=== PATIENT | female | born 1955 | race Caucasian/White ===

== ENCOUNTER 2025-01-20 09:27 | Outpatient (OUT) | payer MEDICARE, SELFPAY ==
--- OUTSIDE RECORDS SUMMARY | 2024-08-24 04:45 | XMS_ITS ---
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 Name Role Phone Estefani Cohn Primary Care Provider REASON FOR VISIT 6 month HTN, GERD Social History Sex Assigned At : Social History Observation Description Sex Assigned At Female Encounters Encounter Location Date Provider Diagnosis Main [address] [facility], [place] [id number] 08/24/2024 Estefani Cohn Plan Of Treatment Next Appt Details Provider Name:Estefani jean baptiste, 03/04/2025 09:45:00 AM, [address] [place], [id number], Progress Notes * Leta BRANCH LDOB:[birth year] (69 yo F)Acc No.[id number]:08/24/2024 Medical Note Patient: Sonia NATHANIELStephen Leta Deutsch Provider: AARON Moreno :1955 A ge:68 Y S ex:Female Date:08/24/2024 Address:[address] [place] [address] [facility], [id number] Subjective: * Chief Complaints: * 1 . 6 month HTN, GERD. * Medical History: Objective: * Vitals: Assessment: Plan: * Treatment: * Billing Information: * Visit Code: * Procedure Codes: * Electronic signature of AARON Prater on 01/20/2025 at 09:38 AM EDT Sign off status: Pending * Provider: AARON Moreno Date: 0 08/24/2024 Generated for Vikas feliz/Janet/Laura on: 0 01/20/2025 09:38 AM EDT
--- OUTSIDE RECORDS SUMMARY | 2025-01-20 09:39 | XMS_ITS | Patient Health Record ---
Author Organization [facility] Address [address] [place], [place] [id number] Care Team Providers Care Concrete Mixer Operator Helper Name Role Phone Estefani Cohn Primary Care Provider Familia Mendoza Unavailable [phone] Dot Waite Unavailable [phone] Lupe Mahoney Unavailable [phone] Allergies Allergen (clinical drug ingredient) Drug/Non Drug Allergy documented on EMR Reaction Allergy Type Onset Date Status CONTRAST DYE (uncoded) Unknown Allergy Active Results Component Value Reference Range Notes RASHEED Screen w/reflex Reviewed date:01/19/2025 01:47:15 PM Interpretation: Performing Lab: Notes/Report: [facility] [address] [place] [address] [id number] On Site Construction Superintendent: Jacobo Rushing MD RASHEED Screen NEGATIVE NEG JUNIOR Screen 0.4 <0.7 U/mL Reference Range: <0.7 Negative 0.7-1.0 Equivocal >1.0 Positive JUNIOR Screen includes U1RNP,RNP70,Sm,Ro(SS-A),L a(SS-B),CENP,Scl-70,Kacey-1 Anti-dsDNA 1.5 <10.0 IU/mL Reference Range: <10.0 Negative 10.0-15.0 Equivocal >15.0 Positive Performing Lab: see note TIL - [facility] [address] [place] [address] Anti-Scleroderma Reviewed date:01/19/2025 01:47:10 PM Interpretation: Performing Lab: Notes/Report: [address] [address] On Site Construction Superintendent: Jacobo Rushing MD Anti-Scleroderma 1.3 <7.0 U/mL Reference Range: <7.0 Negative 7.0-10.0 Equivocal >10.0 Positive Performing Lab: see note TIL - [email or web address] [address] FINGER RT THUMB MIN 2 VWS Reviewed date:03/12/2024 10:07:04 AM Interpretation: Performing Lab: Notes/Report: RASHEED/JUNIOR AB ID PANEL Reviewed date:08/11/2024 04:34:23 PM Interpretation: Performing Lab: Notes/Report: DNA DS ANTIBODY 1 <10 IU/mL Interpretation of dsDNA Antibody results: < or = 4: Negative 5 - 9: Indeterminate > or =10: Positive SHAFER (SM) ANTIBODY <0.2 <1.0 AI CHROMATIN AB <0.2 <1.0 AI SJOGREN'S SS-A ANTIBODY <0.2 <1.0 AI SJOGREN'S SS-B ANTIBODY <0.2 <1.0 AI HAIRMASTERS MANAGER IGG 0.6 <1.0 AI SCLERODERMA AB 2.4 <1.0 AI KACEY-1 ANTIBODY <0.2 <1.0 AI CENTROMERE B ANTIBODY <0.2 <1.0 AI RIBOSOMAL P PROTEIN AB <0.2 <1.0 AI CBC W/AUTO DIFF Reviewed date:08/11/2024 04:32:36 PM Interpretation: Performing Lab: Notes/Report: WBC 5.1 3.6-11.0 THDS/CMM RBC 5.32 3.80-5.20 MILL/CMM HGB 14.5 11.9-16.0 G/DL HCT 45.7 35-47 % MCV 86 75-100 fL MCH 27.3 26.0-33.0 pg MCHC 31.7 32.0-35.0 g/dl RDW 14.4 11.2-14.8 % PLATELET 200 140-440 THOUS/CMM NEUTROPHILS 55.9 45-75 % LYMPHOCYTES 35.4 20-45 % MONOCYTES 6.5 0-13 % EOSINOPHILS 1.6 0-5 % BASOPHILS 0.4 0-2 % IMMATURE GRAN 0.2 0-2 % ABS NEUTROPHILS 2.83 1.9-8.0 K/uL ABS LYMPHOCYTES 1.79 0.9-5.2 K/uL ABS MONOCYTES 0.33 0.1-1.0 K/uL ABS EOSINOPHILS 0.08 0.0-0.80 K/uL ABS BASOPHILS 0.02 0.0-0.2 K/uL ABS IMMATURE GRAN 0.01 0.00-0.06 K/uL SED RATE, AUTOMATED Reviewed date:08/11/2024 04:32:26 PM Interpretation: Performing Lab: Notes/Report: SED RATE, AUTOMATED 25 0-29 MM/HR PHOSPHORUS Reviewed date:08/11/2024 04:32:10 PM Interpretation: Performing Lab: Notes/Report: PHOSPHORUS 4.5 2.5-4.5 mg/dL MAGNESIUM Reviewed date:08/11/2024 04:32:06 PM Interpretation: Performing Lab: Notes/Report: MAGNESIUM 2.4 1.6-2.6 mg/dL VITAMIN B12 Reviewed date:08/11/2024 04:32:16 PM Interpretation: Performing Lab: Notes/Report: VITAMIN B12 917 751-1212 pg/mL It has been reported that between 5 and 10% of patients with values between 200 and 400 pg/ml may experience neuropsychiatric and hematologic abnormalities due to occult B12 deficiency. Less than 1% of patients with values above 400 pg/ml will have symptoms. EXTRACTABLE NUCLEAR ANTIGEN ANTIBODIES Reviewed date:08/11/2024 04:32:21 PM Interpretation: Performing Lab: Notes/Report: SHAFER (SM) ANTIBODY <0.2 <1.0 AI HAIRMASTERS MANAGER IGG 0.6 <1.0 AI UNLESS OTHERWISE INDICATED, ALL TESTING PERFORMED AT: [facility] [address] [place] [address] CHANGE MANAGEMENT FACILITATOR: EBONY VILLA M.D. CLIA NUMBER [id number] CAP ACCREDITATION AUID [id number] ANTI NUCLEAR AB REFLEX TITER n ABID Reviewed date:08/11/2024 04:32:43 PM Interpretation: Performing Lab: Notes/Report: ANTI NUCLEAR ANTIBODIES POSITIVE Negative RASHEED by Multiplex Flow Immunoassay is intended for the qualitative screening of specific antinuclear antibodies (RASHEED), the quantitative detection of antibody to dsDNA, and the semi-quantitative detection of ten (10) separate antibody assays (Chromatin, Ribosomal P, SS-A, SS-B, Sm, SmRNP, HAIRMASTERS MANAGER, Scl-70, Kacey-1, and Centromere B) in human serum. RHEUMATOID FACTOR, QUANT Reviewed date:08/11/2024 04:31:59 PM Interpretation: Performing Lab: Notes/Report: RHEUMATOID FACTOR, QUANT 11 <14 IU/mL RASHEED TITER Reviewed date:08/11/2024 04:31:52 PM Interpretation: Performing Lab: Notes/Report: RASHEED PATTERN (REPORTED TITER) <1:80 <1:80 TITER Anti-Nuclear Antibodies by IFA negative for homogeneous, speckled, nucleolar and centromere patterns. CBC with Diff Reviewed date:01/19/2025 07:29:48 AM Interpretation: Performing Lab: Notes/Report: [facility] [address] [place] [address] On Site Construction Superintendent: Samuel Silveira MD WBC Count 5.3 3.5-11.3 k/uL RBC Count 4.78 3.95-5.11 m/uL Hemoglobin 13.7 11.9-15.1 g/dL Hematocrit 42.5 36.3-47.1 % MCV 88.9 82.6-102.9 fL MCH 28.7 25.2-33.5 pg MCHC 32.2 28.4-34.8 g/dL RDW 12.8 11.8-14.4 % Platelet Count 180 138-453 k/uL MPV 10.2 8.1-13.5 fL NRBC Automated 0.0 0.0 per 100 WBC Neutrophil (Seg) 54 36-65 % Lymphocyte 35 24-43 % Monocyte 8 3-12 % Eosinophil 3 1-4 % Basophil 0 0-2 % Immature Granulocyte 0 0 % Abs.Neutrophil (Seg) 2.89 1.50-8.10 k/uL Abs. Lymph 1.87 1.10-3.70 k/uL Abs. Monocyte 0.41 0.10-1.20 k/uL Abs. Eosinophil 0.14 0.00-0.44 k/uL Abs. Basophil <0.03 0.00-0.20 k/uL Abs.Imm.Granulocyte <0.03 0.00-0.30 k/uL Performing Lab: see note [facility] - [facility] [address] [place] [id number] C-Reactive Protein Reviewed date:01/19/2025 07:29:25 AM Interpretation: Performing Lab: Notes/Report: [facility] [address] [place], [place] [id number] On Site Construction Superintendent: Samuel Silveira MD C-Reactive Protein <3.0 0.0-5.0 mg/L Performing Lab: see note [facility] [address] [place] [id number] Comp Metabolic Prof Reviewed date:01/19/2025 07:29:29 AM Interpretation: Performing Lab: Notes/Report: [facility] [address] [place] [address] On Site Construction Superintendent: Samuel Silveira MD NA (Sodium) 140 136-145 mmol/L K (Potassium) 4.1 3.7-5.3 mmol/L Chloride 102 98-107 mmol/L CO2 26 20-31 mmol/L Anion Gap 12 9-16 mmol/L Glucose 247 74-99 mg/dL BUN (Urea N) 18 8-23 mg/dL Creatinine 0.7 0.50-0.90 mg/dL eGFR >90 >60 mL/min/1.73m2 These results are not intended for use in patients <18 years of age. eGFR results are calculated without a race factor using the 2020 CKD-EPI equation. Careful clinical correlation is recommended, particularly when comparing to results calculated using previous equations. The CKD-EPI equation is less accurate in patients with extremes of muscle mass, extra-renal metabolism of creatine, excessive creatine ingestion, or following therapy that affects renal tubular secretion. BUN/CRE Ratio 26 9-20 Calcium 9.2 8.6-10.4 mg/dL Protein, Total 6.9 6.6-8.7 g/dL Albumin 4.2 3.5-5.2 g/dL Albumin/Glob Ratio 1.5 1.0-2.5 Bilirubin, Total <0.2 0.00-1.20 mg/dL Alkaline Phos 73 35-104 U/L ALT 15 10-35 U/L AST 17 10-35 U/L Performing Lab: see note [facility] [address] [place] [id number] Sedimentation Rate Reviewed date:01/19/2025 07:29:44 AM Interpretation: Performing Lab: Notes/Report: [address] [place] [id number] On Site Construction Superintendent: Samuel Silveira MD Sedimentation Rate 5 0-30 mm/Hr Performing Lab: see note [address] [place] [id number] Urinalysis,Micro Reviewed date:01/19/2025 07:29:35 AM Interpretation: Performing Lab: Notes/Report: [address] [place] [id number] On Site Construction Superintendent: Samuel Silveira MD Urine WBC's 2 TO 5 0-5 /HPF Urine RBC's None 0-2 /HPF Epithelial cells 2 TO 5 0-25 /HPF Bacteria TRACE NONE Mucus Strands TRACE NONE Yeast PRESENCE NOTED NONE Performing Lab: see note [address] [place] [id number] UA w/Reflex Culture Reviewed date:01/19/2025 07:29:40 AM Interpretation: Performing Lab: Notes/Report: [address] [place] [id number] On Site Construction Superintendent: Samuel Silveira MD Color Yellow YEL Clarity, Urine SLIGHTLY CLOUDY CLEAR Glucose,Semi-qnt,Ur 3+ NEG mg/dL Bilirubin, SemiQt,Ur NEGATIVE NEG Ketones, Urine NEGATIVE NEG mg/dL Spec. [place],Ur <1.005 1.010-1.020 Blood, Urine NEGATIVE NEG PH,Ur 6.0 5.0-9.0 Protein, Semi-qnt,Ur NEGATIVE NEG mg/dL Urobilinogen,Ur Normal 0.0-1.0 EU/dL Nitrite,Ur NEGATIVE NEG Leukocyte Esterase TRACE NEG Performing Lab: see note [address] [place] [id number] C3 Reviewed date:01/19/2025 07:29:20 AM Interpretation: Performing Lab: Notes/Report: [address] [id number] On Site Construction Superintendent: Jacobo Rushing MD C3 145 90-180 mg/dL Performing Lab: see note TIL - [facility] [address] [facility] [address] C4 Reviewed date:01/19/2025 07:29:16 AM Interpretation: Performing Lab: Notes/Report: [facility] [address] [place] [address] On Site Construction Superintendent: Jacobo Rushing MD C4 16 10-40 mg/dL Performing Lab: see note TIL - [facility] [address] [facility] [address] UDS Hemoglobin A1C Reviewed date:11/17/2024 11:27:26 AM Interpretation: Performing Lab: Notes/Report: Hemoglobin A1C 7.5 Reason For Referral Reason Possible Avulsed bon e fragment involving right 1st MCP seen at [facility] Diagnosis 1 Tenosynovitis of joel mb (M65.9) Referral Organization [place] Referring Provider First Name Familia Referring Provider Last Name Reji Referring Provider Speciality Physician Tray Line Supervisor Referred Provider [facility] Or [facility] Referred Provider Specialty Orthopedics General Notes Familia Conte 08:35:48 AM >{{TOFIRSTNAME}} This is [facility] following up on an outstanding referral that was ordered by your provider. Please call our office at , so we can _update our records., Familia Conte 04/02/2024 10:50:23 AM >No response from pt, closing referral per protocol. Referral Priority Routine Reason multiple joint pain and abnormal RASHEED titer Diagnosis 1 Multiple joint pain (M25.50) Referral Organization [facility] Referring Provider First Name Estefani Referring Provider Last Name Suki Referring Provider Speciality Nurse Prac titioner Referred Provider [facility] Referred Provider Specialty Rheumatology General Notes Natalia Jiang 11:37:39 AM >{ {TOFIRSTNAME}} This is [facility] following up on an outstanding referral that was ordered by your provider. Please call our office at , so we can _update our records.Sophie Jeff 08/26/2024 12:56:48 PM >Pt has appt 09/14/24 3pm. Apolinar moeller Adrienne 09/22/2024 10:59:32 AM >faxed request Referral Priority Routine Referral Appointment Date 09/14/2024 Medications Medication SIG (Take, Route, Frequency, Duration) Notes Start Date End Date Status Bumetanide 1 MG 1 tablet Orally Twic e a day for 90 days Active Metoprolol Succinate ER 50 MG 1 tablet Orally Once a day 75mg total Active Lisinopril 5 MG 1 tablet Oral Once a day Active Aspirin Low Dose 81 MG TAKE 1 TABLET BY MOUTH DAILY for 90 Active Ozempic (2 MG/DOSE) 8 MG/3ML DIAL AND INJECT UNDER THE SKIN 2 MG WEEKLY for 84 Active Meloxicam 15 MG 1 tablet Orally Once a day for 90 days 08/31/2024 Active Tresiba FlexTouch 100 UNIT/ML 5 units Subcutaneous once daily at bedtime for 90 days 11/21/2023 Active Levothyroxine Sodium 112 MCG TAKE ONE TABLET BY MOUTH EVERY MORNING ON AN EMPTY STOMACH for 90 Active Cyproheptadine HCl 4 MG 1 tablet Oral da marlene for 30 migraines Active Atorvastatin Calcium 20 MG TAKE 1 TABLET BY MOUTH DAILY for 90 Active Metoprolol Succinate ER 25 MG Oral for 90 Days 75mg total Active [employer] [place] 31G X 8 MM USE ONCE DAILY WITH INSULIN for 100 Active [employer] HealthPro Glucose Test - USE ONE STRIP TO TEST TWO TIMES A DAY for 75 Active Farxiga 5 MG 1 tablet Orally Once a day Active Famotidine 20 MG 1 tablet at bedtime as needed Orally Once a day for 30 days 08/31/2024 Active FreeStyle Josué 2 Clubb - 1 reader use daily 10/29/2023 Active Loratadine 10 MG 1 tablet Orally Once a day for 10 days 06/23/2024 Active Flonase Allergy Relief 50 MCG/ACT 1 spray in each nostril Nasally once daily for 30 days 06/23/2024 Active Albuterol Sulfate HFA 108 (90 Base) MCG/ACT 1 puff as needed Inhalation every 4 hrs for 30 days Active FreeStyle Joséu 2 Sensor - 1 sensor change every 14 days for 90 days 10/29/2023 Active Methylphenidate HCl 10 MG 2 tablets Oral Twice a day for 30 migraines Active Vitamin B12 100 MCG as directed Orally daily Active rOPINIRole HCl 0.5 MG 3 tablet 1 to 3 ho urs before bedtime Orally Once a day for 30 days Active Lyrica 25 MG 2 capsule in the am and 2 in the pm Orally for 30 days 02/25/2023 Active Esomeprazole Magnesium 40 MG TAKE 1 CAPSULE BY MOUTH DAILY for 90 days Active carBAMazepine 200 MG 1 tablet Oral at rustt for 30 migraines Active Immunizations Vaccine Route Administration Date Status Comme nts Influenza, inj, MDCK, preservative free, q.valent IM Intramuscular 04/27/2020 Administered Status:Complete ,Reason:Given or N/A Social History Tobacco Use: Social History Observation Description Date Details (start date - stop date) Never Smoker NA - NA Sex Assigned At : Social History Observation Description Sex Assigned At Female Household Question Answer Notes Number of adults in household: 2 Tobacco Use/Smoking Question Answer Notes Tobacco use: nonsmoker patient enter ed data CAGE-AID Questionnaire (2018 Edition) Question Answer Notes Have you ever felt that you ought to cut down on your drinking or drug use? No patient entered data Have people annoyed you by c riticizing your drinking or drug use? No patient entered data Have you ever felt bad or gu ilty about your drinking or drug use? No patient entered data Have you ever had a drink or used drugs first thing in the morning to steady your nerves or to get rid of a hangover? No patient entered data CAGE-AID Score 0 Interpretation Negative PRAPARE Question Answer Notes Date Completed/Updated: 08/10/2024 rosa maria nt entered data What is your current housing situation? I have housing patient entered data Are you worried about losing your housing? No patient entered data What is the highest level of school that you have finished? More than high school patient entered data What is your current work situation? Otherwise unemployed but not seeking work (ex. 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 Check all that apply I do not have problems meeting my needs Has lack of transportation k ept you from medical appointments, meetings, work or from getting things needed for daily living? No How often do you see or talk to people that you care about and feel close to? (For example: talking to friends on the phone, visiting friends or family, going to mormon or club meetings) More than 5 times a week patient entered data How stressed are you? Stress is when someone feels tense, nervous, anxious, or can't sleep at night because their mind is troubled Not at all patient entered data In the past year have you sp ent more than 2 nights in a row in a penitentiary, long-term, senior living center, or juvenile correctional facility? No patient entered data Are you a refugee? No patient en tered data What country are you from? [place] termayne arriaza entered data Do you feel physically and emotionally safe where you currently live? Yes patient entered data In the past year, have you b een afraid of your partner or ex-partner? 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.4) Active confirmed Problem 573766774 Body mass index [BMI] 36.0-36.9, adult (Z68.36) Active confirmed Problem 825817949 Acquired hypothyroidism (E03.9) Active confirmed Problem 108672696 Neuropathy (G62.9) Active confirmed Problem Restless legs syndrome (93989778) Restless leg syndrome (G25.81) Active confirmed Problem 060818854 Gastroesophageal reflux disease without esophagitis (K21.9) Active confirmed Problem 30548193 Primary hypertension (I10) Active confirmed Problem 75388841 Migraine without status migrainosus, not intractable, unspecified migraine type (G43.909) Active confirmed Problem 35758181 Coronary vasospa sm (I20.1) Active confirmed Problem Hypocalcemia (3888690) Hypocalcemia (E83.51) Problem resolved confirmed Problem 21927730 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) 006 Problem resolved confirmed Comment:Res tless Leg Syndrome, Problem Seasonal allergy (223618911) Seasonal allergies (J30.2) Problem resolved confirmed Problem Anxiety (05999419) Anxiety (F41.9) Problem resolved confirmed Comment:Con tinue with current drug regimen as able Continue developing coping strategies as able If mood intensifies , call office for further evaluation, Problem Odell's esophagus with esophagitis (952763694) Odell's esophagus with esophagitis (K22.70) Problem resolved confirmed Problem Cervical spondylosis without myelopathy (037542587) 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 I FEEL ANOTHER TRIAL OF PT IS MOST APPROPRIATE . IF NOT BETTER OR IF SX EXACERBATE WILL REFER TO NEUROSURGEO N. PT AGREEABLE TO THIS PLAN. RTO 4 WEEKS., Problem Deep venous thrombosis (141883168) DVT (deep venous thrombosis) (I82.409) Problem resolved confirmed Vital Signs Heart Rate 97 /min 11/23/2024 pain in right knee and lower legs going into her feet and in her hands Young, Marlen 11/23/2024 10:34:52 AM EDT > Temperature 97.6 degrees Fahrenheit 11/23/2024 pain in right knee and lower legs going into her feet and in her hands Young, Marlen 11/23/2024 10:34:52 AM EDT > Respiratory Rate 16 /min 11/23/2024 pain in right knee and lower legs going into her feet and in her hands Young, Marlen 11/23/2024 10:34:52 AM EDT > Height-cm 149.86 cm 11/23/2024 pain in right knee and lower legs going into her feet and in her hands Young, Marlen 11/23/2024 10:34:52 AM EDT > Oximetry 99 % 11/23/2024 pain in right knee and lower legs going into her feet and in her hands Young, Marlen 11/23/2024 10:34:52 AM EDT > Blood pressure diastolic 62 mm Hg 11/23/2024 pain in right knee and lower legs going into her feet and in her hands Young, Marlen 11/23/2024 10:34:52 AM EDT > Weight-kg 82.96 kg 11/23/2024 pain in right knee and lower legs going into her feet and in her hands Young, Marlen 11/23/2024 10:34:52 AM EDT > Height 59.00 in 11/23/2024 pain in right knee and lower legs going into her feet and in her hands Marlen Sneed 11/23/2024 10:34:52 AM EDT > Blood pressure systolic 114 mm Hg 11/23/2024 pain in right knee and lower legs going into her feet and in her hands Marlen Sneed 11/23/2024 10:34:52 AM EDT > Weight 182.9 lbs 11/23/2024 pain in right knee and lower legs going into her feet and in her hands Marlen Sneed 11/23/2024 10:34:52 AM EDT > BMI 36.94 kg/m2 11/23/2024 pain in right knee and lower legs going into her feet and in her hands Marlen Sneed 11/23/2024 10:34:52 AM EDT > Encounters Encounter Location Date Provider Diagnosis [facility] [address] [place], [place] [id number] 02/20/2024 Familia Mendoza Tenosynovitis of joel mb M65.9 ; Dietary counseling Z71.3 ; Exercise counseling Z71.82 and BMI 36.0-36.9,adult Z68.36 [facility] [address] [place], [place] [id number] 03/12/2024 Familia Mendoza Primary hypertension I10 ; Tenosynovitis of thumb M65.9 and Gastroesophageal reflux disease without esophagitis K21.9 [facility] [address] [facility] [place] [place] [id number] 06/23/2024 Lupe Mahoney Acute effusion of le ft ear H65.192 and Type II diabetes mellitus E11.9 [facility] [address] [place], [place] [id number] 08/10/2024 Estefani Cohn Multiple joint pain M25.50 ; Neuropathy G62.9 ; BMI 35.0-35.9,adult Z68.35 and Obesity, Class II, BMI 35-39.9 E66.812 [facility] [address] [place], [place] [id number] 08/31/2024 Estefani Cohn Type 2 diabetes mellitus with diabetic neuropathy, unspecified E11.40 ; assisted (current) use of insulin Z79.4 ; Primary hypertension I10 ; Gastroesophageal reflux disease without esophagitis K21.9 ; Coronary vasospasm I20.1 ; Neuropathy G62.9 ; Acquired hypothyroidism E03.9 ; Mixed hyperlipidemia E78.2 ; Restless leg syndrome G25.81 ; Seasonal allergies J30.2 ; Multiple joint pain M25.50 ; Migraine without status migrainosus, not intractable, unspecified migraine type G43.909 ; Body mass index [BMI] 30.0-30.9, adult Z68.30 and Obesity, class 1 E66.811 Main [address] [place], [place] [id number] 11/23/2024 Estefanishayan Cohn Type 2 diabetes mellitus with diabetic neuropathy, unspecified E11.40 ; Primary hypertension I10 ; Gastroesophageal reflux disease without esophagitis K21.9 ; Coronary vasospasm I20.1 ; Neuropathy G62.9 ; Acquired hypothyroidism E03.9 ; Mixed hyperlipidemia E78.2 ; Restless leg syndrome G25.81 ; Seasonal allergies J30.2 ; Migraine without status migrainosus, not intractable, unspecified migraine type G43.909 ; Localized swelling of both lower legs R22.43 and Body mass index [BMI] 36.0-36.9, adult Z68.36 [facility] [address] [place], [place] [id number] 04/27/2024 Dot Waite [facility] [address] [place], [place] [id number] 04/28/2024 [facility] [address] [place] [address] 05/25/2024 Estefani Cohn [facility] [address] [place], [place] [id number] 07/06/2024 Estefani Suki [facility] [address] [place], [place] [id number] 08/11/2024 Estefani Suki Multiple joint pain M25.50 and Abnormal antinuclear antibody titer R76.0 Main [address] [place], [place] [id number] 08/21/2024 Estefanishayan Cohn Type 2 diabetes mellitus with diabetic neuropathy, unspecified E11.40 [facility] [address] [place], [place] [id number] 08/24/2024 Estefani Suki Type 2 diabetes mellitus with diabetic neuropathy, unspecified E11.[address] [place], [place] [id number] 03/18/2024 Estefani Myerholtz [facility] [address] [place], [place] [id number] 03/25/2024 Estefani Myerholtz [facility] [address] [place], [place] [id number] 04/15/2024 Dot Mariann [facility] [address] [place], [place] [id number] 06/05/2024 Estefani Myerholtz [facility] [address] [place], [place] [id number] 06/14/2024 Estefani Myerholtz [facility] [address] [place], [place] [id number] 06/14/2024 Estefani Myerholtz [facility] [address] [place], [place] [id number] 08/31/2024 Estefani Myerholtz Multiple joint pain M25.50 and Gastroesophageal reflux disease without esophagitis K21.[address] [place], [place] [id number] 10/26/2024 Estefani Myerholtz Multiple joint pain M25.[address] [place], [place] [id number] 12/16/2024 Estefani Myerholtz Assessments Encounter Date Diagnosis (ICD Code) Assessment Notes Treatment Notes Treatment Clinical Notes Section Notes 10/26/2024 Multiple joint pain (ICD-10 - M25.50) 11/23/2024 Type 2 diabetes mellitus with diabetic neuropathy, unspecified (ICD-10 - E11.40) Pt to continue to f/u with Endocrinology 08/11/2024 Multiple joint pain (ICD-10 - M25.50) 08/11/2024 Abnormal antinuclear antibody titer (ICD-10 - R76.0) 08/21/2024 Type 2 diabetes mellitus with diabetic neuropathy, unspecified (ICD-10 - E11.40) 08/24/2024 Type 2 diabetes mellitus with diabetic neuropathy, unspecified (ICD-10 - E11.40) 08/31/2024 Type 2 diabetes mellitus with diabetic neuropathy, unspecified (ICD-10 - E11.40) Pt to continue to f/u with Endocrinology 08/31/2024 Multiple joint pain (ICD-10 - M25.50) 08/10/2024 Multiple joint pain (ICD-10 - M25.50) Will order blood work for further evaluation. Will await results and treat accordingly. Will start diclofenac to help with symptoms. F/u 3 weeks & PRN 08/10/2024 Neuropathy (ICD-10 - G62.9) Continue with new dose of Lyrica by Neurology. Will order blood work. F/u 3 weeks & PRN 03/12/2024 Primary hypertension (ICD-10 - I10) 06/23/2024 Type II diabetes mellitus (ICD-10 - E11.9) Encouraged to call endocrinology tomorrow to relay current glucose levels. She is not currently on sliding scale insulin. Is taking all diabetes medications as directed. 06/23/2024 Acute effusion of left ear (ICD-10 - H65.192) Encouraged to take Tylenol for pain. Advised that if pain becomes worse and symptoms are not improving to return or Saturday for re-evaluation. No signs of bacterial infection at this time. 02/20/2024 Tenosynovitis of thumb (ICD-10 - M65.9) -right thumb joint pain radiating to right forearm with locking / clicking sensation w/o paresthesia and decreased movement / strength -Ordered X-Rays and started on PO Prednisone, can use warm compresses and mild stretches as able, f/u if no improvement in sxs or worse, PVU 02/20/2024 Dietary counseling (ICD-10 - Z71.3) 03/12/2024 Tenosynovitis of thumb (ICD-10 - M65.9) -right thumb joint pain radiating to right forearm with locking / clicking sensation w/o paresthesia and decreased movement / strength -X-Rays show possible smallavulsed bone fragment involving the ulnar head of 1st MCP and some osteopytes -disucssed and making referral to Ortho for further evaluation and apprpriate therapy 03/12/2024 Gastroesophageal reflux disease without esophagitis (ICD-10 - K21.9) 02/20/2024 Exercise counseling (ICD-10 - Z71.82) 08/10/2024 BMI 35.0-35.9,adult (ICD-10 - Z68.35) Body Mass Index: Care Instructions material was published 08/31/2024 Gastroesophageal reflux disease without esophagitis (ICD-10 - K21.9) 08/31/2024 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 Will continue current medications. Encouraged healthy diet and exercise. F/u 3 months & PRN 11/23/2024 Gastroesophageal reflux disease without esophagitis (ICD-10 - K21.9) GERD stable. Will continue current medications. F/u 3 months & PRN 08/31/2024 Primary hypertension (ICD-10 - I10) HTN stable. Will continue current medications. Encouraged healthy diet and exercise. F/u 3 months & PRN 08/10/2024 Obesity, Class II, BMI 35-39.9 (ICD-10 - E66.812) 02/20/2024 BMI 36.0-36.9,adult (ICD-10 - Z68.36) 11/23/2024 Coronary vasospasm (ICD-10 - I20.1) Pt to continue to f/u with Cardiology 08/31/2024 Gastroesophageal reflux disease without esophagitis (ICD-10 - K21.9) Will add famotidine as needed at night to help with symptoms. Will continue other medication. F/u 3 months & PRN 08/31/2024 Coronary vasospasm (ICD-10 - I20.1) Pt to continue to f/u with Cardiology 11/23/2024 Neuropathy (ICD-10 - G62.9) Pt to continue to f/u with Neurology 11/23/2024 Acquired hypothyroidism (ICD-10 - E03.9) Pt is stable on current medications. Will continue current medications. F/u 3 months & PRN 08/31/2024 Neuropathy (ICD-10 - G62.9) Pt to continue to f/u with Neurology 08/31/2024 Acquired hypothyroidism (ICD-10 - E03.9) Pt is stable on current medications. Will continue current medications. F/u 3 months & PRN 11/23/2024 Mixed hyperlipidemia (ICD-10 - E78.2) Pt is stable on current medications. Will continue current medications. F/u 3 months & PRN 11/23/2024 Restless leg syndrome (ICD-10 - G25.81) Pt to continue to f/u with Neurology 08/31/2024 Mixed hyperlipidemia (ICD-10 - E78.2) Pt is stable on current medications. Will continue current medications. F/u 3 months & PRN 08/31/2024 Restless leg syndrome (ICD-10 - G25.81) Pt to continue to f/u with Neurology 11/23/2024 Seasonal allergies (ICD-10 - J30.2) Allergies stable. Will continue current medications. F/u 3 months & PRN 11/23/2024 Migraine without status migrainosus, not intractable, unspecified migraine type (ICD-10 - G43.909) Pt to continue to f/u with Neurology 08/31/2024 Seasonal allergies (ICD-10 - J30.2) Allergies stable. Will continue current medications. F/u 3 months & PRN 08/31/2024 Multiple joint pain (ICD-10 - M25.50) Will stop diclofenac and start meloxicam to help with symptoms. Advised pt to keep appt with Rheumatology 11/23/2024 Localized swelling of both lower legs (ICD-10 - R22.43) Will have pt increase bumex to twice a day to help with symptoms. Discussed reassuring vs non reassuring signs related to swelling and when to RTC or go to the ER. F/u 3 months & PRN 11/23/2024 Body mass index [BMI] 36.0-36.9, adult (ICD-10 - Z68.36) Body Mass Index: Care Instructions material was published 08/31/2024 Migraine without status migrainosus, not intractable, unspecified migraine type (ICD-10 - G43.909) Pt to continue to f/u with Neurology 08/31/2024 Body mass index [BMI] 30.0-30.9, adult (ICD-10 - Z68.30) Body Mass Index: Care Instructions material was published 08/31/2024 Obesity, class 1 (ICD-10 - E66.811) Plan Of Treatment Next Appt Details Provider Name:Estefani Bentleyjordy jean baptiste, 03/04/2025 09:45:00 AM, [address] [place], [place], [id number], Insurance Providers Payer Name Payer Address Payer Phone Subscriber Number Group Number Insured Name Patient Relationship to Insured Coverage Start Date Coverage End Date [employer] Medicare Advantage [address] [place] [phone] [id number] [id number] [employer] Self - patient is the insured Medical (General) History Medical History History ICD Code Obstructive Sleep apnea Insomnia Diabetic neuropathy DVT (deep venous thrombosis) 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 Gastroesophageal reflux disease Headache, migraine Hip Pain Hypertension) Hyperlipidemia Hypothyroidism Depression Restless Leg Syndrome Sacral Back Pain Type II diabetes mellitus Vitamin D deficiency 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
[2025-01-20 10:23] LABS: Microalbum Creatinine Ratio Ur 11.6 mg/g (0.0-29.9)
[2025-01-20 10:24] LABS: Alanine Aminotransferase 23 U/L (14-59); Albumin Globulin Ratio 1.1; Albumin Level 3.5 g/dL (3.4-5.0); Alkaline Phosphatase 69 U/L (46-116); Anion Gap 12.9; Aspartate Amino Transferase 16 U/L (15-37); Blood Urea Nitrogen 27.0 mg/dL (7.0-18.0); Calcium 8.9 mg/dL (8.5-10.1); Carbon Dioxide 29.3 mmol/L (21.0-32.0); Chloride 107 mmol/L (98-107); Cholesterol 137 mg/dL (<=200); Estimated GFR (African America >60 (>=60 mL/min/1.73m^2); Estimated GFR (Non-African Ame >60 (>=60 mL/min/1.73m^2); Globulin 3.2 g/dL; Glucose 176 mg/dL (74-106); HDL Cholesterol 47 mg/dL (40-60); Potassium 4.2 mmol/L (3.5-5.1); Sodium 145 mmol/L (136-145); Total Protein 6.7 g/dL (6.4-8.2); Triglycerides 155 mg/dL (<=150); VLDL CHOLESTEROL 31.0 mg/dL
== END 2025-01-20 09:28 | disposition home or self-care (01) ==
PROVIDERS: Family Provider Family Medicine; PCP Nurse Practitioner Family; Visit Provider Nurse Practitioner Family
DX: E78.5 Hyperlipidemia, unspecified (principal); Z83.3 Family history of diabetes mellitus; I10 Essential (primary) hypertension; Z79.4 Long term (current) use of insulin; E11.65 Type 2 diabetes mellitus with hyperglycemia
CPT/HCPCS: 36415; 80053; 80061; 82043; 82570